=== PATIENT | female | born 1995 | race Caucasian/White ===

== ENCOUNTER 2019-10-15 12:31 | Emergency (ER) | payer MEDICAID ==
[2019-10-15] MEDS ORDERED: Sodium Chloride 0.9% 1000 ML 1,000 ML IV STA (13:28)
[2019-10-15] MEDS ORDERED: Sodium Chloride 0.9% 1000 ML 1,000 ML ONE (13:37)
[2019-10-15 13:42] LABS: Hematocrit 38.8 % (35-47); Hemoglobin 12.3 gm/dl (12.0-16.0); Mean Cell Volume 79.8 fl (78-100); Mean Corpuscular Hemoglobin 25.3 pg (26-32); Mean Corpuscular Hgb Concent. 31.7 g/dl (32-36); Mean Platelet Volume 12.3 fl (6-9.5); Platelet Count 227 K/mm3 (150-450); Red Blood Count 4.86 M/mm3 (4.1-5.4); Red Cell Distribution Width 15.5 % (11.5-14.0); White Blood Count 4.5 K/mm3 (4.0-10.5)
[2019-10-15 14:00] LABS: ALBUMIN 4.7 g/dL (3.5-5.0); ALKALINE PHOSPHATASE 57 U/L (38-126); ANION GAP 10.9 MEQ/L (5-15); BLOOD UREA NITROGEN 8 mg/dL (7-17); CHLORIDE 108 mmol/L (98-107); Calcium 9.8 mg/dL (8.4-10.2); Carbon Dioxide 26 mmol/L (22-30); Creatinine 1 0.57 mg/dL (0.52-1.04); Glucose 89 mg/dL (74-106); Potassium 3.6 mmol/L (3.5-5.1); SGOT/AST 18 U/L (14-36); SGPT/ALT 12 U/L (0-35); SODIUM 141 mmol/L (137-145)
[2019-10-15 15:19] LABS: ABO TYPING O; Antibody Screen NEGATIVE (NEGATIVE); RH TYPING POSITIVE
[2019-10-15] MEDS ORDERED: TYLENOL EXTRA STRENGTH 500 MG PO STA (16:06)
[2019-10-15] MEDS ORDERED: TYLENOL EXTRA STRENGTH 500 MG ONE (16:10)
--- NOTE | 2019-10-15 16:18 | ERPHSYRPT ---
- History of Present Illness Time Seen by Provider: 10/15/19 13:12 Source: patient Exam Limitations: no limitations Patient Subjective Stated Complaint: pt to ER with complaints of vaginal bleeding that started 30 mins ago. pt had some cramping last night and this morning. pt is aprox 6 weeks. Triage Nursing Assessment: pt to ER with complaints of vaginal bleeding since this morning. pt states she is aprox 6 weeks . Physician History: 23 yo at almost 6 weeks gestation based on LMP 09/07/19 with positive home test presented with sudden onset lower abdominal cramps of ,mild to moderate intensity around 1 am , .Almost 30 minutes [employer] started to have vaginal bleed, initially dark and then bright red, moderate amount. no passage of tissue. Timing/Duration: today, intermittent, worse Quality: cramping Onset Location: pelvic pain Severity of Pain-Max: moderate Severity of Pain-Current: mild Modifying Factors: Improves With: nothing Associated Symptoms: denies symptoms Allergies/Adverse Reactions: hydrocodone Allergy (Verified 10/15/19 12:50) Hx Tetanus, Diphtheria Vaccination/Date Given: Yes Hx Influenza Vaccination/Date Given: No Hx Pneumococcal Vaccination/Date Given: No - Review of Systems Constitutional: No Symptoms Eyes: No Symptoms Ears, Nose, & Throat: No Symptoms Respiratory: No Symptoms Cardiac: No Symptoms Abdominal/Gastrointestinal: No Symptoms Genitourinary Symptoms: , Vaginal Bleeding Musculoskeletal: No Symptoms Skin: No Symptoms Neurological: No Symptoms Psychological: No Symptoms - Past Medical History Pertinent Past Medical History: No Neurological History: No Pertinent History ENT History: No Pertinent History Cardiac History: No Pertinent History Respiratory History: No Pertinent History Endocrine Medical History: No Pertinent History Musculoskeletal History: No Pertinent History GI Medical History: No Pertinent History History: No Pertinent History Psycho-Social History: No Pertinent History Female Reproductive Disorders: No Pertinent History - Past Surgical History Past Surgical History: Yes Neuro Surgical History: No Pertinent History Cardiac: No Pertinent History Respiratory: No Pertinent History Gastrointestinal: No Pertinent History Genitourinary: Kidney Surgery Musculoskeletal: No Pertinent History Female Surgical History: No Pertinent History - Social History Smoking Status: Current every day smoker Exposure to second hand smoke: Yes Drug Use: none Patient Lives Alone: No - Female History Hx Last Menstrual Period: 09/07/2019 Hx Now: Yes - Nursing Vital Signs Nursing Vital Signs: Initial Vital Signs Temperature 98.7 F 10/15/19 12:42 Pulse Rate 110 H 10/15/19 12:42 Respiratory Rate 17 10/15/19 12:42 Blood Pressure 120/87 10/15/19 12:42 O2 Sat by Pulse Oximetry 99 10/15/19 12:42 - Physical Exam General Appearance: no apparent distress Eye Exam: PERRL/EOMI, eyes nml inspection Ears, Nose, Throat Exam: normal ENT inspection Neck Exam: normal inspection Respiratory Exam: normal breath sounds Cardiovascular Exam: regular rate/rhythm, normal heart sounds Gastrointestinal/Abdomen Exam: soft, normal bowel sounds, No tenderness Back Exam: normal inspection, normal range of motion Extremity Exam: normal inspection, normal range of motion Neurologic Exam: alert, oriented x 3, cooperative Skin Exam: normal color, warm, dry SpO2 Interpretation: normal SpO2: 98 O2 Delivery: Room Air - Course Nursing assessment & vital signs reviewed: Yes Ordered Tests: Active Orders 24 hr Category Date Time Status OB <14 WKS 1ST GESTATION [US] Stat Exams 10/15/19 15:02 Taken CBC Stat Lab 10/15/19 13:35 Completed CMP Stat Lab 10/15/19 13:35 Completed HCG, Quantitative (Inhouse) Stat Lab 10/15/19 13:35 Completed UA W/RFX UR CULTURE Stat Lab 10/15/19 15:50 Uncollected Medication Summary Discontinued Medications Generic Name Dose Route Start Last Admin Trade Name Nurys PRN Reason Stop Dose Admin Acetaminophen 1,000 mg 10/15/19 16:06 Tylenol Extra Strength 500 Mg PO 10/15/19 16:07 STAT STA Sodium Chloride 1,000 mls @ 999 mls/hr 10/15/19 13:28 10/15/19 15:02 Sodium Chloride 0.9% 1000 Ml IV 10/15/19 14:28 Infused .Q1H1M STA Infusion Sodium Chloride Confirm 10/15/19 13:37 Sodium Chloride 0.9% 1000 Ml Administered 10/15/19 13:38 Dose 1,000 mls @ ud .ROUTE .STK-MED ONE Lab/Rad Data: Laboratory Result Diagrams 10/15/19 13:35 10/15/19 13:35 Laboratory Results 10/15/19 10/15/19 10/15/19 Range/Units 14:00 13:35 13:35 WBC (4.0-10.5) K/mm3 RBC (4.1-5.4) M/mm3 Hgb (12.0-16.0) gm/dl Hct (35-47) % MCV (78-100) fl MCH (26-32) pg MCHC (32-36) g/dl RDW (11.5-14.0) % Plt Count (150-450) K/mm3 MPV (6-9.5) fl Sodium 141 (137-145) mmol/L Potassium 3.6 (3.5-5.1) mmol/L Chloride 108 H (98-107) mmol/L Carbon Dioxide 26 (22-30) mmol/L Anion Gap 10.9 (5-15) MEQ/L BUN 8 (7-17) mg/dL Creatinine 0.57 (0.52-1.04) mg/dL Estimated GFR > 60.0 ML/MIN Glucose 89 (74-106) mg/dL Calcium 9.8 (8.4-10.2) mg/dL Total Bilirubin 0.80 (0.2-1.3) mg/dL AST 18 (14-36) U/L ALT 12 (0-35) U/L Alkaline Phosphatase 57 (38-126) U/L Serum Total Protein 8.0 (6.3-8.2) g/dL Albumin 4.7 (3.5-5.0) g/dL Beta HCG, Quant 413.10 mIU/ml ABO Group O Rh Factor POSITIVE Antibody Screen NEGATIVE (NEGATIVE) 10/15/19 Range/Units 13:35 WBC 4.5 (4.0-10.5) K/mm3 RBC 4.86 (4.1-5.4) M/mm3 Hgb 12.3 (12.0-16.0) gm/dl Hct 38.8 (35-47) % MCV 79.8 (78-100) fl MCH 25.3 L (26-32) pg MCHC 31.7 L (32-36) g/dl RDW 15.5 H (11.5-14.0) % Plt Count 227 (150-450) K/mm3 MPV 12.3 H (6-9.5) fl Sodium (137-145) mmol/L Potassium (3.5-5.1) mmol/L Chloride (98-107) mmol/L Carbon Dioxide (22-30) mmol/L Anion Gap (5-15) MEQ/L BUN (7-17) mg/dL Creatinine (0.52-1.04) mg/dL Estimated GFR ML/MIN Glucose (74-106) mg/dL Calcium (8.4-10.2) mg/dL Total Bilirubin (0.2-1.3) mg/dL AST (14-36) U/L ALT (0-35) U/L Alkaline Phosphatase (38-126) U/L Serum Total Protein (6.3-8.2) g/dL Albumin (3.5-5.0) g/dL Beta HCG, Quant mIU/ml ABO Group Rh Factor Antibody Screen (NEGATIVE) - Progress Progress: unchanged Air Movement: fair Progress Note: 10/15/19 16:16 given IVF , Has no GS / poles, HCG in 400s, its either too early or she is miss carrying, recommended tylenol /increaqsed hydration , pelvic rest and repeat hcg in 2 days . discssed sx/sn of worsening needing return which she seems understanding. - Departure Departure Disposition: Home Clinical Impression: Vaginal bleeding during Condition: Stable Critical Care Time: No Referrals: DOCTOR,NO FAMILY [Primary Care Provider] - Instructions: Threatened Miscarriage (DC) Additional Instructions: USE TYLENOL NEEDED/ INCREASED HYDRATION. FOLLOW UP WITH YOUR OB IN THE MORNING. RECHECK HCG LEVEL IN 2 DAYS . RETURN FOR ANY WORSENING BLEEDING/PAIN / LIGHTHEADEDNESS ETC.
[2019-10-15 16:49] LABS: Appearance SLIGHTLY CLOUDY (CLEAR); Bilirubin NEGATIVE (NEGATIVE); Blood MODERATE Ery/ul (0-5); Epithelial Cells RARE /HPF (FEW); Glucose NEGATIVE (NEGATIVE); Ketones NEGATIVE (NEGATIVE); Leukocyte Esterase NEGATIVE (NEGATIVE); Mucus MANY /HPF (NEGATIVE); Nitrite NEGATIVE (NEGATIVE); Protein,Urine Dip NEGATIVE (Negative); Specific Gravity 1.026 (1.005-1.025); Urobilinogen NEGATIVE mg/dL (0-1); WBC 0-2 /HPF (0-5)
[2019-10-15 16:50] LABS: Bacteria NONE SEEN /HPF (NEGATIVE)
[2019-10-15 16:53] VITALS: BP 113/70; PULSE 68; O2SAT 99
[2019-10-15 17:56] LABS: Slide Review YES
--- NOTE | 2019-10-15 19:05 | XRAY ---
Indication: Bleeding. Two-dimensional transvaginal pelvic sonogram performed. Comparison: None Uterus is anteverted with thickened endometrial stripe up to 12 mm. No endometrial cavity mass, gestational sac, or fluid collection. Left and right ovaries appear unremarkable with normal color perfusion. No suspicious adnexal mass or free fluid. Impression: Thickened endometrial stripe. Remaining transvaginal pelvic sonogram is negative. Comment: Preliminary report was given.
== END 2019-10-15 16:53 | disposition home or self-care (01) ==
LOC: ED 12:31
DX: O20.8 Other hemorrhage in early pregnancy (principal)
CPT/HCPCS: 36000; 36415; 76801; 80053; 81001; 84702; 85027; 86850; 86900; 86901; 96360; 99284; A9270-GY

== ENCOUNTER 2021-10-11 15:15 | Emergency (ER) | payer OTHER ==
--- NOTE | 2021-10-11 15:39 | ERPHSYRPT ---
- History of Present Illness Time Seen by Provider: 10/11/21 15:17 Source: patient Exam Limitations: no limitations Physician History: 25 years old female 5 para 1 at almost 5 weeks gestation per LMP presented in the ER for beta-hCG quant level checked as she had a vaginal bleeding/spotting 2 days ago for which she was evaluated at [facility] on her OB sent here for recheck as she has history of multiple miscarriages early gestation. Patient reports no vaginal bleeding but what 2 days ago. Denies any cramping, urinary complaints. She had ultrasound done at [facility] which they were able to find only a sac but no heartbeat. No abdominal/pelvic pain/cramping. Timing/Duration: abrupt onset, days (2) Severity: mild Associated Symptoms: denies symptoms Allergies/Adverse Reactions: hydrocodone Allergy (Verified 10/15/19 12:50) Hx Tetanus, Diphtheria Vaccination/Date Given: Yes Hx Influenza Vaccination/Date Given: No Hx Pneumococcal Vaccination/Date Given: No - Review of Systems Constitutional: No Symptoms Eyes: No Symptoms Respiratory: No Symptoms Cardiac: No Symptoms Abdominal/Gastrointestinal: No Symptoms Genitourinary Symptoms: Musculoskeletal: No Symptoms Skin: No Symptoms Neurological: No Symptoms Psychological: No Symptoms Endocrine: No Symptoms Hematologic/Lymphatic: No Symptoms Immunological/Allergic: No Symptoms - Past Medical History Pertinent Past Medical History: No Neurological History: No Pertinent History ENT History: No Pertinent History Cardiac History: No Pertinent History Respiratory History: No Pertinent History Endocrine Medical History: No Pertinent History Musculoskeletal History: No Pertinent History GI Medical History: No Pertinent History History: No Pertinent History Psycho-Social History: No Pertinent History Female Reproductive Disorders: No Pertinent History - Past Surgical History Past Surgical History: Yes Neuro Surgical History: No Pertinent History Cardiac: No Pertinent History Respiratory: No Pertinent History Gastrointestinal: No Pertinent History Genitourinary: Kidney Surgery Musculoskeletal: No Pertinent History Female Surgical History: No Pertinent History - Social History Smoking Status: Current every day smoker Exposure to second hand smoke: Yes Drug Use: none Patient Lives Alone: No - Nursing Vital Signs Nursing Vital Signs: Initial Vital Signs Temperature 98.5 F 10/11/21 15:40 Pulse Rate 64 10/11/21 15:40 Respiratory Rate 18 10/11/21 15:40 Blood Pressure 122/75 10/11/21 15:40 O2 Sat by Pulse Oximetry 95 10/11/21 15:40 Pain Scale Pain Intensity 0 - Physical Exam General Appearance: no apparent distress, alert, anxiety Eye Exam: bilateral eye: normal inspection, PERRL Ear Exam: bilateral ear: auricle normal Nasal Exam: normal inspection Throat Exam: normal, pharynx normal Neck Exam: normal inspection, supple, full range of motion Cardiovascular/Respiratory Exam: normal breath sounds, regular rate/rhythm Abdominal Exam: non-tender, soft, no organomegaly, No guarding Neurologic Exam: alert, oriented x 3, cooperative Skin Exam: normal color SpO2 Interpretation: normal SpO2: 95 O2 Delivery: Room Air Ordered Tests: Active Orders 24 hr Category Date Time Status HCG, Quantitative (Inhouse) Stat Lab 10/11/21 16:51 Completed HCG,QUALITATIVE URINE Stat Lab 10/11/21 16:24 Completed UA W/RFX UR CULTURE Stat Lab 10/11/21 15:54 Completed Lab/Rad Data: Laboratory Results 10/11/21 10/11/21 10/11/21 Range/Units 16:51 16:45 16:24 Beta HCG, Quant 7864.0 mIU/ml Urine Color (YELLOW) Urine Appearance (CLEAR) Urine pH (5-6) Ur Specific [place] (1.005-1.025) Urine Protein (Negative) Urine Ketones (NEGATIVE) Urine Blood (0-5) Cesar/ul Urine Nitrite (NEGATIVE) Urine Bilirubin (NEGATIVE) Urine Urobilinogen (0-1) mg/dL Ur Leukocyte Esterase (NEGATIVE) Urine WBC (Auto) (0-5) /HPF Urine RBC (Auto) (0-2) /HPF U Epithel Cells (Auto) (FEW) /HPF Urine Bacteria (Auto) (NEGATIVE) /HPF Urine Mucus (Auto) (NEGATIVE) /HPF Urine Culture Reflexed (NO) Urine Glucose (NEGATIVE) mg/dL Urine HCG, Qual POSITIVE (Negative) ABO Group O Rh Factor POSITIVE Antibody Screen NEGATIVE (NEGATIVE) 10/11/21 Range/Units 15:54 Beta HCG, Quant mIU/ml Urine Color YELLOW (YELLOW) Urine Appearance SLIGHTLY CLOUDY (CLEAR) Urine pH 6.0 (5-6) Ur Specific [place] 1.021 (1.005-1.025) Urine Protein NEGATIVE (Negative) Urine Ketones NEGATIVE (NEGATIVE) Urine Blood NEGATIVE (0-5) Cesar/ul Urine Nitrite NEGATIVE (NEGATIVE) Urine Bilirubin NEGATIVE (NEGATIVE) Urine Urobilinogen NEGATIVE (0-1) mg/dL Ur Leukocyte Esterase TRACE (NEGATIVE) Urine WBC (Auto) 3-5 (0-5) /HPF Urine RBC (Auto) NONE (0-2) /HPF U Epithel Cells (Auto) RARE (FEW) /HPF Urine Bacteria (Auto) NONE (NEGATIVE) /HPF Urine Mucus (Auto) SLIGHT (NEGATIVE) /HPF Urine Culture Reflexed NO (NO) Urine Glucose NEGATIVE (NEGATIVE) mg/dL Urine HCG, Qual (Negative) ABO Group Rh Factor Antibody Screen (NEGATIVE) - Progress Progress: unchanged Progress Note: 10/11/21 16:34 25 years old is evaluated for vaginal bleeding few days ago and needs beta-hCG quant level checked. She does not have any more bleeding. Denies any urinary symptoms. She has a blood group O+. Patient does not want to stay for the results, wants to be called as she has to cook pickled meat her son. She is being discharged and will call with results. Patient is called about the results of increasing hCG which is reassuring and recommended outpatient OB follow-up. Counseled pt/family regarding: lab results, diagnosis, need for follow-up - Departure Departure Disposition: Home Clinical Impression: Vaginal bleeding affecting early Condition: Stable Critical Care Time: No Referrals: DOCTOR,NO FAMILY [NON-STAFF PHY W/O PRIVILEGES] - Follow up/PCP as directed KANDI BALDWIN DO [ACTIVE STAFF] - Follow up/PCP as directed (Call in 2 days for reevaluation) Instructions: Threatened Miscarriage (DC), Bleeding With (DC) Additional Instructions: Drink plenty of fluids. Take Tylenol as needed. Pelvic rest. Follow-up with OB for reevaluation. Return to ER for cramping, vaginal bleeding discharge etc.
[2021-10-11 16:42] VITALS: BP 110/61; PULSE 68
[2021-10-11 16:49] VITALS: O2SAT 95
[2021-10-11 17:34] LABS: Appearance SLIGHTLY CLOUDY (CLEAR); Bilirubin NEGATIVE (NEGATIVE); Blood NEGATIVE Ery/ul (0-5); Epithelial Cells RARE /HPF (FEW); Glucose NEGATIVE (NEGATIVE); Ketones NEGATIVE (NEGATIVE); Leukocyte Esterase TRACE (NEGATIVE); Mucus SLIGHT /HPF (NEGATIVE); Nitrite NEGATIVE (NEGATIVE); Protein,Urine Dip NEGATIVE (Negative); Specific Gravity 1.021 (1.005-1.025); Urobilinogen NEGATIVE mg/dL (0-1)
[2021-10-11 17:50] LABS: ABO TYPING O; Antibody Screen NEGATIVE (NEGATIVE); RH TYPING POSITIVE
== END 2021-10-11 16:55 | disposition home or self-care (01) ==
LOC: ED 15:15
DX: O26.851 Spotting complicating pregnancy, first trimester (principal); Z3A.01 Less than 8 weeks gestation of pregnancy; Z72.0 Tobacco use
CPT/HCPCS: 36415; 81001; 84702; 84703; 86850; 86900; 86901; 99283

== ENCOUNTER 2021-10-27 18:09 | Emergency (ER) | payer OTHER ==
[2021-10-27 18:54] VITALS: O2SAT 100
--- NOTE | 2021-10-27 19:09 | ERPHSYRPT ---
- History of Present Illness Time Seen by Provider: 10/27/21 19:06 Source: patient Exam Limitations: no limitations Patient Subjective Stated Complaint: " I am 8 weeks and I had a gush of blood around 6pm and my pants were wet". Triage Nursing Assessment: Pt presents to ER with complaints of vaginal bleeding that occurred this afternoon around 1800, states has been spotting all but had increase in bleeding today. Pt is alert and oriented x3. Skin is pink, warm, and dry. Respirations are unlabored at this time. Pt complains of lower abdominal cramping, rates pain 6/10 scale. Pt is a A4, pt states goes to OBGYN Dr. Mcgowan. Pt is experiencing an increase in vaginal discharge. Allergies/Adverse Reactions: hydrocodone Allergy (Verified 10/27/21 18:54) Hx Tetanus, Diphtheria Vaccination/Date Given: Yes Hx Influenza Vaccination/Date Given: No Hx Pneumococcal Vaccination/Date Given: No Immunizations Up to Date: Yes Travel Risk - International Travel Have you traveled outside of the country in past 3 weeks: No - Coronavirus Screening Are you exhibiting any of the following symptoms?: Yes Symptoms: Fever, Cough: New Onset, Headaches/Body Aches/Fatigue Close contact with a COVID-19 positive Pt in past 14-21 Days: Yes - Vaccine Status Have you recieved a Covid-19 vaccination: No - Past Medical History Pertinent Past Medical History: Yes Neurological History: No Pertinent History ENT History: No Pertinent History Cardiac History: No Pertinent History Respiratory History: No Pertinent History Endocrine Medical History: No Pertinent History Musculoskeletal History: No Pertinent History GI Medical History: No Pertinent History History: No Pertinent History Psycho-Social History: Anxiety, Attention Deficit Disorder, Depression Female Reproductive Disorders: No Pertinent History Other Medical History: Miscarried 2 children - Past Surgical History Past Surgical History: Yes Neuro Surgical History: No Pertinent History Cardiac: No Pertinent History Respiratory: No Pertinent History Gastrointestinal: No Pertinent History Genitourinary: Kidney Surgery Musculoskeletal: No Pertinent History Female Surgical History: No Pertinent History Other Surgical History: wisdom teeth - Social History Smoking Status: Current every day smoker Exposure to second hand smoke: No Drug Use: none Patient Lives Alone: No - Female History Hx Last Menstrual Period: 08/30/2021 Hx Now: Yes Expected Date of Delivery: 06/10/22 Gestational Age: 8 weeks - Nursing Vital Signs Nursing Vital Signs: Initial Vital Signs Temperature 96.8 F 10/27/21 18:47 Pulse Rate 62 10/27/21 18:47 Respiratory Rate 18 10/27/21 18:47 Blood Pressure 127/82 10/27/21 18:47 O2 Sat by Pulse Oximetry 100 10/27/21 18:47 Pain Scale Pain Intensity 6 - Physical Exam SpO2: 100 - Departure Referrals: DANGELO WARREN CERTIFIED PHYSICIAN'S ASSISTANT [Primary Care Provider] - Follow up/PCP as directed
--- NOTE | 2021-10-27 19:09 | ERPHSYRPT ---
- History of Present Illness Time Seen by Provider: 10/27/21 19:06 Patient Subjective Stated Complaint: " I am 8 weeks and I had a gush of blood around 6pm and my pants were wet". Triage Nursing Assessment: Pt presents to ER with complaints of vaginal bleeding that occurred this afternoon around 1800, states has been spotting all but had increase in bleeding today. Pt is alert and oriented x3. Skin is pink, warm, and dry. Respirations are unlabored at this time. Pt complains of lower abdominal cramping, rates pain 6/10 scale. Pt is a A4, pt states goes to OBGYN Dr. Mcgowan. Pt is experiencing an increase in vaginal discharge. Physician History: This is a 25-year-old white female patient of Dr. Mcgowan, obstetrics and gynecology who is 8 weeks . She underwent first trimester OB ultrasound last week and there was a single intrauterine fetus present. Patient states that per her work-up from her shampoo technician, everything looked good despite having vaginal spotting throughout this thus far. Patient is a A4 female. Today, approximately 1 hour prior to her arrival to the emergency department, she had a gush of fluid that ended up being blood and associated suprapubic and pelvic cramping. Patient arrives to the emergency department and her vital signs are stable. Timing/Duration: today Activites at Onset: none Quality: cramping Pain Radiation: suprapubic Severity of Pain-Max: mild Severity of Pain-Current: mild Sexual intercourse history: non-contributory Modifying Factors: Improves With: nothing Associated Symptoms: vaginal discharge (Blood) Allergies/Adverse Reactions: hydrocodone Allergy (Verified 10/27/21 18:54) Hx Tetanus, Diphtheria Vaccination/Date Given: Yes Hx Influenza Vaccination/Date Given: No Hx Pneumococcal Vaccination/Date Given: No Travel Risk - International Travel Have you traveled outside of the country in past 3 weeks: No - Coronavirus Screening Are you exhibiting any of the following symptoms?: Yes Symptoms: Fever, Cough: New Onset, Headaches/Body Aches/Fatigue Close contact with a COVID-19 positive Pt in past 14-21 Days: Yes - Vaccine Status Have you recieved a Covid-19 vaccination: No - Review of Systems Constitutional: No Symptoms Eyes: No Symptoms Ears, Nose, & Throat: No Symptoms Respiratory: No Symptoms Cardiac: No Symptoms Abdominal/Gastrointestinal: Abdominal Pain (Suprapubic cramping) Genitourinary Symptoms: Vaginal Bleeding Musculoskeletal: No Symptoms Skin: No Symptoms Neurological: No Symptoms Psychological: No Symptoms Endocrine: No Symptoms Hematologic/Lymphatic: No Symptoms Immunological/Allergic: No Symptoms All Other Systems: Reviewed and Negative - Past Medical History Pertinent Past Medical History: Yes Neurological History: No Pertinent History ENT History: No Pertinent History Cardiac History: No Pertinent History Respiratory History: No Pertinent History Endocrine Medical History: No Pertinent History Musculoskeletal History: No Pertinent History GI Medical History: No Pertinent History History: No Pertinent History Psycho-Social History: Anxiety, Attention Deficit Disorder, Depression Female Reproductive Disorders: No Pertinent History Other Medical History: Miscarried 2 children - Past Surgical History Past Surgical History: Yes Neuro Surgical History: No Pertinent History Cardiac: No Pertinent History Respiratory: No Pertinent History Gastrointestinal: No Pertinent History Genitourinary: Kidney Surgery Musculoskeletal: No Pertinent History Female Surgical History: No Pertinent History Other Surgical History: wisdom teeth - Social History Smoking Status: Current every day smoker Exposure to second hand smoke: No Drug Use: none Patient Lives Alone: No - Female History Hx Last Menstrual Period: 08/30/2021 Hx Now: Yes Expected Date of Delivery: 06/10/22 Gestational Age: 8 weeks - Nursing Vital Signs Nursing Vital Signs: Initial Vital Signs Temperature 96.8 F 10/27/21 18:47 Pulse Rate 62 10/27/21 18:47 Respiratory Rate 18 10/27/21 18:47 Blood Pressure 127/82 10/27/21 18:47 O2 Sat by Pulse Oximetry 100 10/27/21 18:47 Pain Scale Pain Intensity 6 - Physical Exam General Appearance: no apparent distress, alert, anxiety Eye Exam: PERRL/EOMI, eyes nml inspection Ears, Nose, Throat Exam: normal ENT inspection, moist mucous membranes Neck Exam: normal inspection, non-tender, supple, full range of motion Respiratory Exam: normal breath sounds, lungs clear, airway intact, No chest tenderness, No respiratory distress Cardiovascular Exam: regular rate/rhythm, normal heart sounds, normal peripheral pulses Gastrointestinal/Abdomen Exam: soft, normal bowel sounds, tenderness, No guarding (Mild suprapubic to palpation), No rebound Pelvic Exam: not done Rectal Exam: not done Back Exam: normal inspection, normal range of motion, No CVA tenderness, No vertebral tenderness Extremity Exam: normal inspection, normal range of motion, pelvis stable Neurologic Exam: alert, oriented x 3, cooperative, traffic expert II-XII nml as tested, normal mood/affect, nml cerebellar function, nml station & gait, sensation nml Skin Exam: normal color, warm, dry Lymphatic Exam: No adenopathy SpO2 Interpretation: normal SpO2: 100 O2 Delivery: Room Air - Course Nursing assessment & vital signs reviewed: Yes Ordered Tests: Active Orders 24 hr Category Date Time Status IV Insertion STAT Care 10/27/21 19:09 Active CBC W DIFF Stat Lab 10/27/21 19:20 Completed CMP Stat Lab 10/27/21 19:20 Completed CULTURE,URINE Stat Lab 10/27/21 19:24 Received HCG, Quantitative (Inhouse) Stat Lab 10/27/21 19:20 Completed HCG,QUALITATIVE URINE Stat Lab 10/27/21 19:24 Completed UA W/RFX UR CULTURE Stat Lab 10/27/21 19:24 Completed Lab/Rad Data: Laboratory Result Diagrams 10/27/21 19:20 10/27/21 19:20 Laboratory Results 10/27/21 10/27/21 10/27/21 Range/Units 19:24 19:24 19:20 WBC (4.0-10.5) K/mm3 RBC (4.1-5.4) M/mm3 Hgb (12.0-16.0) gm/dl Hct (35-47) % MCV (78-100) fl MCH (26-32) pg MCHC (32-36) g/dl RDW (11.5-14.0) % Plt Count (150-450) K/mm3 MPV (7.5-11.0) fl Gran % (36.0-66.0) % Eos # (Auto) (0-0.5) Absolute Lymphs (auto) (1.0-4.6) Absolute Monos (auto) (0.0-1.3) Lymphocytes % (24.0-44.0) % Monocytes % (0.0-12.0) % Eosinophils % (0.00-5.0) % Basophils % (0.0-0.4) % Absolute Granulocytes (1.4-6.9) Basophils # (0-0.4) Sodium (137-145) mmol/L Potassium (3.5-5.1) mmol/L Chloride (98-107) mmol/L Carbon Dioxide (22-30) mmol/L Anion Gap (5-15) MEQ/L BUN (7-17) mg/dL Creatinine (0.52-1.04) mg/dL Estimated GFR ML/MIN Glucose (74-106) mg/dL Calcium (8.4-10.2) mg/dL Total Bilirubin (0.2-1.3) mg/dL AST (14-36) U/L ALT (0-35) U/L Alkaline Phosphatase (38-126) U/L Serum Total Protein (6.3-8.2) g/dL Albumin (3.5-5.0) g/dL Beta HCG, Quant 91408 mIU/ml Urine Color YELLOW (YELLOW) Urine Appearance CLOUDY (CLEAR) Urine pH 5.0 (5-6) Ur Specific [place] 1.025 (1.005-1.025) Urine Protein 30 (Negative) Urine Ketones SMALL (NEGATIVE) Urine Blood NEGATIVE (0-5) Cesar/ul Urine Nitrite NEGATIVE (NEGATIVE) Urine Bilirubin NEGATIVE (NEGATIVE) Urine Urobilinogen NEGATIVE (0-1) mg/dL Ur Leukocyte Esterase SMALL (NEGATIVE) Urine WBC (Auto) 6-10 (0-5) /HPF Urine RBC (Auto) 6-10 (0-2) /HPF U Epithel Cells (Auto) MODERATE (FEW) /HPF Urine Bacteria (Auto) RARE (NEGATIVE) /HPF Urine Mucus (Auto) SLIGHT (NEGATIVE) /HPF Urine Culture Reflexed YES (NO) Urine Glucose NEGATIVE (NEGATIVE) mg/dL Urine HCG, Qual POSITIVE (Negative) 10/27/21 10/27/21 Range/Units 19:20 19:20 WBC 4.6 (4.0-10.5) K/mm3 RBC 4.60 (4.1-5.4) M/mm3 Hgb 12.4 (12.0-16.0) gm/dl Hct 38.2 (35-47) % MCV 83.0 (78-100) fl MCH 27.0 (26-32) pg MCHC 32.5 (32-36) g/dl RDW 15.4 H (11.5-14.0) % Plt Count 154 (150-450) K/mm3 MPV 12.0 H (7.5-11.0) fl Gran % 67.9 H (36.0-66.0) % Eos # (Auto) 0.02 (0-0.5) Absolute Lymphs (auto) 1.02 (1.0-4.6) Absolute Monos (auto) 0.42 (0.0-1.3) Lymphocytes % 22.3 L (24.0-44.0) % Monocytes % 9.2 (0.0-12.0) % Eosinophils % 0.4 (0.00-5.0) % Basophils % 0.2 (0.0-0.4) % Absolute Granulocytes 3.11 (1.4-6.9) Basophils # 0.01 (0-0.4) Sodium 134 L (137-145) mmol/L Potassium 3.7 (3.5-5.1) mmol/L Chloride 101 (98-107) mmol/L Carbon Dioxide 25 (22-30) mmol/L Anion Gap 11.8 (5-15) MEQ/L BUN 5 L (7-17) mg/dL Creatinine 0.50 L (0.52-1.04) mg/dL Estimated GFR > 60.0 ML/MIN Glucose 93 (74-106) mg/dL Calcium 8.6 (8.4-10.2) mg/dL Total Bilirubin 0.40 (0.2-1.3) mg/dL AST 17 (14-36) U/L ALT 11 (0-35) U/L Alkaline Phosphatase 53 (38-126) U/L Serum Total Protein 7.1 (6.3-8.2) g/dL Albumin 4.4 (3.5-5.0) g/dL Beta HCG, Quant mIU/ml Urine Color (YELLOW) Urine Appearance (CLEAR) Urine pH (5-6) Ur Specific Santa (1.005-1.025) Urine Protein (Negative) Urine Ketones (NEGATIVE) Urine Blood (0-5) Cesar/ul Urine Nitrite (NEGATIVE) Urine Bilirubin (NEGATIVE) Urine Urobilinogen (0-1) mg/dL Ur Leukocyte Esterase (NEGATIVE) Urine WBC (Auto) (0-5) /HPF Urine RBC (Auto) (0-2) /HPF U Epithel Cells (Auto) (FEW) /HPF Urine Bacteria (Auto) (NEGATIVE) /HPF Urine Mucus (Auto) (NEGATIVE) /HPF Urine Culture Reflexed (NO) Urine Glucose (NEGATIVE) mg/dL Urine HCG, Qual (Negative) - Progress Progress: improved, re-examined Air Movement: good Progress Note: 10/27/21 20:09 Medical decision making: I did call the patient's shampoo technician, Dr. Mcgowan who stated that the patient, if stable, can be sent home and if possible, order an outpatient OB ultrasound. He will be back in the office on 10/29/2021. We are awaiting the remainder of her work-up and we will follow this plan. Blood Culture(s) Obtained: No Counseled pt/family regarding: lab results, diagnosis, need for follow-up - Departure Departure Disposition: Home Clinical Impression: Vaginal bleeding during , UTI (urinary tract infection) during Condition: Stable Critical Care Time: No Referrals: DANGELO WARREN TIRE WORKER [Primary Care Provider] - Follow up/PCP as directed Additional Instructions: Drink plenty fluids. Follow-up at the radiology department tomorrow morning for OB less than 14 weeks ultrasound. Take your antibiotics as prescribed. Call your shampoo technician tomorrow to make arrange for follow-up appointment. Prescriptions: Cephalexin Mh 500 mg [Keflex 500 mg] 500 mg PO TID #15 cap
[2021-10-27 19:30] LABS: Absolute Neutrophil Ct (ANC) 3.11 (1.4-6.9); Basophil (Absolute #) 0.01 (0-0.4); Eosinophil % 0.4 % (0.00-5.0); Eosinophil (Absolute #) 0.02 (0-0.5); Hematocrit 38.2 % (35-47); Hemoglobin 12.4 gm/dl (12.0-16.0); Lymphocyte (Absolute #) 1.02 (1.0-4.6); Lymphocytes % 22.3 % (24.0-44.0); Mean Corpuscular Hgb Concent. 32.5 g/dl (32-36); Monocyte (Absolute #) 0.42 (0.0-1.3); Monocytes % 9.2 % (0.0-12.0); Neutrophil % 67.9 % (36.0-66.0); Platelet Count 154 K/mm3 (150-450); Red Cell Distribution Width 15.4 % (11.5-14.0); White Blood Count 4.6 K/mm3 (4.0-10.5)
[2021-10-27 19:42] LABS: ALBUMIN 4.4 g/dL (3.5-5.0); ALKALINE PHOSPHATASE 53 U/L (38-126); ANION GAP 11.8 MEQ/L (5-15); BLOOD UREA NITROGEN 5 mg/dL (7-17); CHLORIDE 101 mmol/L (98-107); Calcium 8.6 mg/dL (8.4-10.2); Carbon Dioxide 25 mmol/L (22-30); EST GLOMERULAR FILTRATION RATE > 60.0 ML/MIN; Glucose 93 mg/dL (74-106); Potassium 3.7 mmol/L (3.5-5.1); SGOT/AST 17 U/L (14-36); SGPT/ALT 11 U/L (0-35); SODIUM 134 mmol/L (137-145); Total Protein 7.1 g/dL (6.3-8.2)
[2021-10-27 21:00] LABS: Appearance CLOUDY (CLEAR); Bacteria RARE /HPF (NEGATIVE); Bilirubin NEGATIVE (NEGATIVE); Blood NEGATIVE Ery/ul (0-5); Epithelial Cells MODERATE /HPF (FEW); Glucose NEGATIVE (NEGATIVE); Ketones SMALL (NEGATIVE); Leukocyte Esterase SMALL (NEGATIVE); Mucus SLIGHT /HPF (NEGATIVE); Nitrite NEGATIVE (NEGATIVE); Protein,Urine Dip 30 (Negative); Specific Gravity 1.025 (1.005-1.025); Urobilinogen NEGATIVE mg/dL (0-1)
[2021-10-27] MEDS ORDERED: KEFLEX 500 MG PO ONE (21:06)
[2021-10-27] MEDS ORDERED: KEFLEX 500 MG ONE (21:10)
[2021-10-27 21:27] VITALS: BP 111/69; PULSE 76
== END 2021-10-27 21:20 | disposition home or self-care (01) ==
LOC: ED 18:09
DX: O20.9 Hemorrhage in early pregnancy, unspecified (principal); O23.41 Unspecified infection of urinary tract in pregnancy, first trimester; N39.0 Urinary tract infection, site not specified; Z3A.08 8 weeks gestation of pregnancy; Z72.0 Tobacco use
CPT/HCPCS: 36415; 80053; 81001; 84702; 84703; 85025; 87086; 99283; A9270-GY

== ENCOUNTER 2021-10-30 06:39 | Emergency (ER) | payer OTHER ==
[2021-10-30 07:00] VITALS: BP 130/83; PULSE 95; O2SAT 100
[2021-10-30] MEDS ORDERED: Augmentin 875-125 Tablet PO ONE (07:21)
[2021-10-30] MEDS ORDERED: Augmentin 875-125 Tablet ONE (07:26)
[2021-10-30] MEDS ORDERED: MORPHINE SULFATE 4 MG INJ ONE (07:30)
[2021-10-30] MEDS ORDERED: MORPHINE SULFATE 4 MG INJ IM ONE (07:42)
[2021-10-30] MEDS ORDERED: ZOFRAN ODT 4 MG PO ONE (08:04)
[2021-10-30] MEDS ORDERED: ZOFRAN ODT 4 MG ONE (08:04)
--- NOTE | 2021-10-30 08:13 | ERPHSYRPT ---
- History of Present Illness Time Seen by Provider: 10/30/21 07:42 Source: patient Exam Limitations: no limitations Patient Subjective Stated Complaint: pt states she has a chipped tooth and swelling to her lt lower jaw and has been having increased pain today Triage Nursing Assessment: pt alert and oriented, answers questions approp. pt ambulatory with steady gait noted. pt tearful and restless in bed. respirations nonlabored. Physician History: 25 years old 8 weeks gestation presented in the ER with chief complaint of left lower jaw/tooth ache problems 1 week with gradual worsening moderate to severe sharp throbbing, increased sensitivity to hot and cold touch and no significant relief with taking [id number] pain relief meds like Tylenol. Reports associated swelling of gums. Patient reports she has a broken chip tooth and is scheduled to be seen by dentist in a week and a half. No fever or chills reported. Patient also reports she did takes [place] from her friend yesterday which did mild relief. Timing/Duration: gradual onset, weeks (1) Severity: moderate, severe ENT Location: dental Prearrival Treatment: over the counter meds Associated Symptoms: facial pain/swelling, tooth pain Allergies/Adverse Reactions: hydrocodone Allergy (Verified 10/30/21 07:00) Hx Tetanus, Diphtheria Vaccination/Date Given: Yes Hx Influenza Vaccination/Date Given: No Hx Pneumococcal Vaccination/Date Given: No Immunizations Up to Date: Yes Travel Risk - International Travel Have you traveled outside of the country in past 3 weeks: No - Coronavirus Screening Are you exhibiting any of the following symptoms?: Yes Symptoms: Cough: New Onset, Headaches/Body Aches/Fatigue - Vaccine Status Have you recieved a Covid-19 vaccination: No - Review of Systems Constitutional: No Symptoms Eyes: No Symptoms Ears, Nose, & Throat: Mouth Pain Respiratory: No Symptoms Cardiac: No Symptoms Abdominal/Gastrointestinal: No Symptoms Genitourinary Symptoms: No Symptoms Musculoskeletal: No Symptoms Neurological: No Symptoms Endocrine: No Symptoms Hematologic/Lymphatic: No Symptoms - Past Medical History Pertinent Past Medical History: Yes Neurological History: No Pertinent History ENT History: No Pertinent History Cardiac History: No Pertinent History Respiratory History: No Pertinent History Endocrine Medical History: No Pertinent History Musculoskeletal History: No Pertinent History GI Medical History: No Pertinent History History: No Pertinent History Psycho-Social History: Anxiety, Attention Deficit Disorder, Depression Female Reproductive Disorders: No Pertinent History Other Medical History: Miscarried 2 children - Past Surgical History Past Surgical History: Yes Neuro Surgical History: No Pertinent History Cardiac: No Pertinent History Respiratory: No Pertinent History Gastrointestinal: No Pertinent History Genitourinary: No Pertinent History Musculoskeletal: No Pertinent History Female Surgical History: No Pertinent History Other Surgical History: wisdom teeth - Social History Smoking Status: Current every day smoker How long have you smoked: yrs Exposure to second hand smoke: No Drug Use: none Patient Lives Alone: No - Female History Hx Last Menstrual Period: sep 03, 2021 Hx Now: Yes Expected Date of Delivery: 06/10/22 Gestational Age: 8weeks - Nursing Vital Signs Nursing Vital Signs: Initial Vital Signs Temperature 98.3 F 10/30/21 06:46 Pulse Rate 95 H 10/30/21 06:46 Respiratory Rate 18 10/30/21 06:46 Blood Pressure 130/83 10/30/21 06:46 O2 Sat by Pulse Oximetry 100 10/30/21 06:46 Pain Scale Pain Intensity 10 - Physical Exam General Appearance: no apparent distress, alert Eye Exam: bilateral eye: normal inspection, PERRL, EOMI Ear Exam: bilateral ear: auricle normal, canal normal, TM normal Nasal Exam: normal inspection Throat Exam: normal, pharynx normal, dental tenderness (Left lower premolar and molar with gingival swelling and tenderness without fluctuation) Neck Exam: normal inspection, non-tender, supple, full range of motion Cardiovascular/Respiratory Exam: normal breath sounds, regular rate/rhythm Neurologic Exam: alert, oriented x 3, cooperative, package center supervisor II-XII nml as tested Skin Exam: normal color SpO2 Interpretation: normal SpO2: 100 O2 Delivery: Room Air Ordered Tests: Medication Summary Discontinued Medications Generic Name Dose Route Start Last Admin Trade Name Freq PRN Reason Stop Dose Admin Amoxicillin/Clavulanate Potassium 875 mg 10/30/21 07:21 10/30/21 07:27 Amox Tr/Potassium Clavulanate 875 Mg Tablet PO 10/30/21 07:22 875 mg STAT ONE Administration Amoxicillin/Clavulanate Potassium Confirm 10/30/21 07:26 Amox Tr/Potassium Clavulanate 875 Mg Tablet Administered 10/30/21 07:27 Dose 875 mg .ROUTE .STK-MED ONE Morphine Sulfate Confirm 10/30/21 07:30 Morphine Sulfate 4 Mg/Ml Injection Administered 10/30/21 07:31 Dose 4 mg .ROUTE .STK-MED ONE Morphine Sulfate 4 mg 10/30/21 07:42 10/30/21 07:56 Morphine Sulfate 4 Mg/Ml Injection IM 10/30/21 07:43 4 mg STAT ONE Administration Ondansetron HCl 4 mg 10/30/21 08:04 10/30/21 08:04 Zofran 4 Mg/Udtablet Orally Disintegrating PO 10/30/21 08:05 4 mg STAT ONE Administration Ondansetron HCl Confirm 10/30/21 08:04 Zofran 4 Mg/Udtablet Orally Disintegrating Administered 10/30/21 08:05 Dose 4 mg .ROUTE .STK-MED ONE - Progress Progress: pain not gone completely Progress Note: 10/30/21 08:09 She is given symptomatic relief with pain medication after going over risk and benefits of category C medications and she agreed with receiving morphine. Started on Augmentin. We will give her tramadol to go home and she understands the risk that this medication is category C and not completely safe but still wants it. Outpatient dental follow-up. Counseled pt/family regarding: diagnosis, need for follow-up - Departure Departure Disposition: Home Clinical Impression: Dental infection Condition: Stable Critical Care Time: No Referrals: DANGELO WARREN SPEECH THERAPIST [facility] [Primary Care Provider] - Follow up/PCP as directed Instructions: Tooth Abscess (DC), Dental Pain (DC) Additional Instructions: Follow-up with your dentist in 1-2 days for reevaluation. Take pain medications as needed. Continue with Augmentin and stop taking Keflex. Return to ER for increasing swelling, pain/fever chills etc. Prescriptions: Tramadol HCl 50 mg [Ultram 50 mg] 50 mg PO Q6HPRN PRN 3 Days #12 tablet PRN Reason: Pain Amox Tr/Potass Clav. 875 mg [Augmentin 875-125 Tablet] 875 mg PO BID #14 tablet
== END 2021-10-30 08:20 | disposition home or self-care (01) ==
LOC: ED 06:39
DX: K04.7 Periapical abscess without sinus (principal); Z72.0 Tobacco use; Z33.1 Pregnant state, incidental; Z79.891 Long term (current) use of opiate analgesic
CPT/HCPCS: 96372; 99283; J2270; Q0162; A9270-GY

== ENCOUNTER 2021-12-09 23:50 | Emergency (ER) | payer OTHER ==
[2021-12-10 00:41] LABS: Absolute Neutrophil Ct (ANC) 4.07 (1.4-6.9); Basophil (Absolute #) 0.03 (0-0.4); Eosinophil % 1.4 % (0.00-5.0); Eosinophil (Absolute #) 0.09 (0-0.5); Hematocrit 34.8 % (35-47); Hemoglobin 11.1 gm/dl (12.0-16.0); Lymphocyte (Absolute #) 1.87 (1.0-4.6); Lymphocytes % 28.8 % (24.0-44.0); Mean Cell Volume 86.4 fl (78-100); Mean Corpuscular Hemoglobin 27.5 pg (26-32); Mean Corpuscular Hgb Concent. 31.9 g/dl (32-36); Mean Platelet Volume 11.5 fl (7.5-11.0); Monocyte (Absolute #) 0.44 (0.0-1.3); Monocytes % 6.8 % (0.0-12.0); Neutrophil % 62.5 % (36.0-66.0); Platelet Count 187 K/mm3 (150-450); Red Blood Count 4.03 M/mm3 (4.1-5.4); Red Cell Distribution Width 16.5 % (11.5-14.0); White Blood Count 6.5 K/mm3 (4.0-10.5)
[2021-12-10 00:49] LABS: Appearance CLOUDY (CLEAR); Bilirubin NEGATIVE (NEGATIVE); Blood LARGE Ery/ul (0-5); Epithelial Cells MODERATE /HPF (FEW); Glucose NEGATIVE (NEGATIVE); Ketones NEGATIVE (NEGATIVE); Leukocyte Esterase TRACE (NEGATIVE); Mucus SLIGHT /HPF (NEGATIVE); Nitrite NEGATIVE (NEGATIVE); Protein,Urine Dip 30 (Negative); RBC 0-2 /HPF (0-2); Specific Gravity 1.017 (1.005-1.025); Urobilinogen NEGATIVE mg/dL (0-1)
[2021-12-10 01:08] LABS: Bacteria Many; Clue Cells Few; Red Blood Cells None Seen; Trichomonas None Seen; White Blood Cells Many; Yeast None Seen
--- NOTE | 2021-12-10 01:16 | ERPHSYRPT ---
- History of Present Illness Time Seen by Provider: 12/09/21 23:55 Source: patient Exam Limitations: no limitations Patient Subjective Stated Complaint: "I'm having some vaginal bleeding." Triage Nursing Assessment: 25 y/o white female T1 A4 L1 who is 14 weeks gestation reported having vaginal bleedin onset 12/08/21 after having intercourse last night. She reported having no bleeding or intercourse on 12/09/21 and awoke around midnight and had a large amount of vaginal bleeding without cramping. Denied any clots. Denied abdominal/pelvic pain, N/V, chest pain or shortness of breath. Symmetrical chest expansion. heart tones RRR. Lungs vesicular without adventitious sounds. Abdomen obese non-distended, non-tender, without voluntary/involuntary guarding. peripheral pulses +3 bilateral. No dependent edema. Timing/Duration: today Severity: moderate Modifying Factors: Improves With: nothing Associated Symptoms: denies symptoms Allergies/Adverse Reactions: hydrocodone Allergy (Verified 12/09/21 23:56) Hx Tetanus, Diphtheria Vaccination/Date Given: Yes Hx Influenza Vaccination/Date Given: No Hx Pneumococcal Vaccination/Date Given: No Travel Risk - International Travel Have you traveled outside of the country in past 3 weeks: No - Coronavirus Screening Are you exhibiting any of the following symptoms?: No Close contact with a COVID-19 positive Pt in past 14-21 Days: No - Vaccine Status Have you recieved a Covid-19 vaccination: No - Review of Systems Constitutional: No Symptoms, No Fever, No Chills Eyes: No Symptoms Ears, Nose, & Throat: No Symptoms Respiratory: No Symptoms, No Cough, No Dyspnea Cardiac: No Symptoms, No Chest Pain, No Edema, No Syncope Abdominal/Gastrointestinal: No Symptoms, No Abdominal Pain, No Nausea, No Vomiting, No Diarrhea Genitourinary Symptoms: No Symptoms, No Dysuria Musculoskeletal: No Symptoms, No Back Pain, No Neck Pain Skin: No Symptoms, No Rash Neurological: No Symptoms, No Dizziness, No Focal Weakness, No Sensory Changes Psychological: No Symptoms Endocrine: No Symptoms Hematologic/Lymphatic: No Symptoms Immunological/Allergic: No Symptoms All Other Systems: Reviewed and Negative - Past Medical History Pertinent Past Medical History: Yes Neurological History: No Pertinent History ENT History: No Pertinent History Cardiac History: No Pertinent History Respiratory History: No Pertinent History Endocrine Medical History: No Pertinent History Musculoskeletal History: No Pertinent History GI Medical History: No Pertinent History History: No Pertinent History Psycho-Social History: Anxiety, Attention Deficit Disorder, Depression Female Reproductive Disorders: No Pertinent History Other Medical History: Miscarried 2 children - Past Surgical History Past Surgical History: Yes Neuro Surgical History: No Pertinent History Cardiac: No Pertinent History Respiratory: No Pertinent History Gastrointestinal: No Pertinent History Genitourinary: No Pertinent History Musculoskeletal: No Pertinent History Female Surgical History: No Pertinent History Other Surgical History: wisdom teeth - Social History Smoking Status: Current every day smoker How long have you smoked: yrs Exposure to second hand smoke: No Drug Use: none Patient Lives Alone: No - Female History Hx Now: Yes Expected Date of Delivery: 06/10/22 - Nursing Vital Signs Nursing Vital Signs: Initial Vital Signs Temperature 97.9 F 12/09/21 23:50 Pulse Rate 95 H 12/09/21 23:50 Respiratory Rate 18 12/09/21 23:50 Blood Pressure 119/86 12/09/21 23:50 O2 Sat by Pulse Oximetry 99 12/09/21 23:50 Pain Scale Pain Intensity 0 - Physical Exam General Appearance: no apparent distress, alert Eye Exam: PERRL/EOMI, eyes nml inspection Ears, Nose, Throat Exam: normal ENT inspection, TMs normal, pharynx normal, moist mucous membranes Neck Exam: normal inspection, non-tender, supple, full range of motion Respiratory Exam: normal breath sounds, lungs clear, airway intact, No respiratory distress Cardiovascular Exam: regular rate/rhythm, normal heart sounds, normal peripheral pulses Gastrointestinal/Abdomen Exam: soft, normal bowel sounds, No tenderness, No mass Back Exam: normal inspection, normal range of motion, No CVA tenderness, No vertebral tenderness Extremity Exam: normal inspection, normal range of motion, pelvis stable Neurologic Exam: alert, oriented x 3, cooperative, normal mood/affect, nml cerebellar function, nml station & gait, sensation nml, No motor deficits Skin Exam: normal color, warm, dry, No rash Lymphatic Exam: No adenopathy SpO2 Interpretation: normal SpO2: 99 O2 Delivery: Room Air - Course Nursing assessment & vital signs reviewed: Yes - Radiology Ultrasound Exam OB Ultrasound: discussed w/radiologist (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 Viable fetus. No subchorionic hemorrhage.) Ordered Tests: Active Orders 24 hr Category Date Time Status IV Insertion STAT Care 12/10/21 00:12 Active OB FOLLOW UP PER [facility] [US] Stat Exams 12/10/21 00:47 Taken CBC W DIFF Stat Lab 12/10/21 00:12 Completed CMP Stat Lab 12/10/21 00:12 Completed CULTURE,URINE Stat Lab 12/10/21 00:12 Received HCG, Quantitative (Inhouse) Stat Lab 12/10/21 00:12 Completed UA W/RFX UR CULTURE Stat Lab 12/10/21 00:12 Completed Wet Prep Stat Lab 12/10/21 00:12 Completed Lab/Rad Data: Laboratory Result Diagrams 12/10/21 00:12 12/10/21 00:12 Laboratory Results 12/10/21 12/10/21 12/10/21 Range/Units 00:12 00:12 00:12 WBC (4.0-10.5) K/mm3 RBC (4.1-5.4) M/mm3 Hgb (12.0-16.0) gm/dl Hct (35-47) % MCV (78-100) fl MCH (26-32) pg MCHC (32-36) g/dl RDW (11.5-14.0) % Plt Count (150-450) K/mm3 MPV (7.5-11.0) fl Gran % (36.0-66.0) % Eos # (Auto) (0-0.5) Absolute Lymphs (auto) (1.0-4.6) Absolute Monos (auto) (0.0-1.3) Lymphocytes % (24.0-44.0) % Monocytes % (0.0-12.0) % Eosinophils % (0.00-5.0) % Basophils % (0.0-0.4) % Absolute Granulocytes (1.4-6.9) Basophils # (0-0.4) Sodium (137-145) mmol/L Potassium (3.5-5.1) mmol/L Chloride (98-107) mmol/L Carbon Dioxide (22-30) mmol/L Anion Gap (5-15) MEQ/L BUN (7-17) mg/dL Creatinine (0.52-1.04) mg/dL Estimated GFR ML/MIN Glucose (74-106) mg/dL Calcium (8.4-10.2) mg/dL Total Bilirubin (0.2-1.3) mg/dL AST (14-36) U/L ALT (0-35) U/L Alkaline Phosphatase (38-126) U/L Serum Total Protein (6.3-8.2) g/dL Albumin (3.5-5.0) g/dL Beta HCG, Quant mIU/ml Urine Color (YELLOW) Urine Appearance (CLEAR) Urine pH (5-6) Ur Specific [place] (1.005-1.025) Urine Protein (Negative) Urine Ketones (NEGATIVE) Urine Blood (0-5) Cesar/ul Urine Nitrite (NEGATIVE) Urine Bilirubin (NEGATIVE) Urine Urobilinogen (0-1) mg/dL Ur Leukocyte Esterase (NEGATIVE) Urine WBC (Auto) (0-5) /HPF Urine RBC (Auto) (0-2) /HPF U Epithel Cells (Auto) (FEW) /HPF Urine Bacteria (Auto) (NEGATIVE) /HPF Urine Mucus (Auto) (NEGATIVE) /HPF Urine Culture Reflexed (NO) Urine Glucose (NEGATIVE) mg/dL WBC (Wet Prep) Many RBC (Wet Prep) None Seen Epi Cells (Wet Prep) Many Bacteria (Wet Prep) Many Clue Cells (Wet Prep) Few Trichomonas (Wet Prep) None Seen Budding Yeast (Wet Prp) None Seen Chlamydia DNA Probe NOT DETECTED (NEGATIVE) N.gonorrhoeae DNA Probe NOT DETECTED (NEGATIVE) ABO Group O Rh Factor POSITIVE Antibody Screen NEGATIVE (NEGATIVE) 12/10/21 12/10/21 12/10/21 Range/Units 00:12 00:12 00:12 WBC 6.5 (4.0-10.5) K/mm3 RBC 4.03 L (4.1-5.4) M/mm3 Hgb 11.1 L (12.0-16.0) gm/dl Hct 34.8 L (35-47) % MCV 86.4 (78-100) fl MCH 27.5 (26-32) pg MCHC 31.9 L (32-36) g/dl RDW 16.5 H (11.5-14.0) % Plt Count 187 (150-450) K/mm3 MPV 11.5 H (7.5-11.0) fl Gran % 62.5 (36.0-66.0) % Eos # (Auto) 0.09 (0-0.5) Absolute Lymphs (auto) 1.87 (1.0-4.6) Absolute Monos (auto) 0.44 (0.0-1.3) Lymphocytes % 28.8 (24.0-44.0) % Monocytes % 6.8 (0.0-12.0) % Eosinophils % 1.4 (0.00-5.0) % Basophils % 0.5 (0.0-0.4) % Absolute Granulocytes 4.07 (1.4-6.9) Basophils # 0.03 (0-0.4) Sodium 137 (137-145) mmol/L Potassium 3.5 (3.5-5.1) mmol/L Chloride 106 (98-107) mmol/L Carbon Dioxide 21 L (22-30) mmol/L Anion Gap 14.0 (5-15) MEQ/L BUN 7 (7-17) mg/dL Creatinine 0.45 L (0.52-1.04) mg/dL Estimated GFR > 60.0 ML/MIN Glucose 85 (74-106) mg/dL Calcium 8.7 (8.4-10.2) mg/dL Total Bilirubin 0.40 (0.2-1.3) mg/dL AST 14 (14-36) U/L ALT 10 (0-35) U/L Alkaline Phosphatase 64 (38-126) U/L Serum Total Protein 6.0 L (6.3-8.2) g/dL Albumin 3.5 (3.5-5.0) g/dL Beta HCG, Quant 92867 mIU/ml Urine Color YELLOW (YELLOW) Urine Appearance CLOUDY (CLEAR) Urine pH 6.0 (5-6) Ur Specific [place] 1.017 (1.005-1.025) Urine Protein 30 (Negative) Urine Ketones NEGATIVE (NEGATIVE) Urine Blood LARGE (0-5) Cesar/ul Urine Nitrite NEGATIVE (NEGATIVE) Urine Bilirubin NEGATIVE (NEGATIVE) Urine Urobilinogen NEGATIVE (0-1) mg/dL Ur Leukocyte Esterase TRACE (NEGATIVE) Urine WBC (Auto) 3-5 (0-5) /HPF Urine RBC (Auto) 0-2 (0-2) /HPF U Epithel Cells (Auto) MODERATE (FEW) /HPF Urine Bacteria (Auto) NONE (NEGATIVE) /HPF Urine Mucus (Auto) SLIGHT (NEGATIVE) /HPF Urine Culture Reflexed YES (NO) Urine Glucose NEGATIVE (NEGATIVE) mg/dL WBC (Wet Prep) RBC (Wet Prep) Epi Cells (Wet Prep) Bacteria (Wet Prep) Clue Cells (Wet Prep) Trichomonas (Wet Prep) Budding Yeast (Wet Prp) Chlamydia DNA Probe (NEGATIVE) N.gonorrhoeae DNA Probe (NEGATIVE) ABO Group Rh Factor Antibody Screen (NEGATIVE) - Progress Progress: improved Progress Note: Patient reassessed. She is well. No active bleeding. Cervical os closed. Patient is Rh+. No indication for RhoGam. Few clue cells observed. Case discussed with Dr. Mcgowan who advised against treating with Flagyl. GC chlamydia negative. Vital stable. Patient requesting discharge. Patient agrees to follow-up with her primary care doctor/OB within 48 hours for evaluation. Portions of this note were created with voice recognition technology. There may be grammatical, spelling, punctuation or sound alike errors 12/10/21 02:[address] Jose Will see patient in: office Counseled pt/family regarding: lab results, diagnosis, need for follow-up, rad results - Departure Departure Disposition: Home Clinical Impression: Threatened Condition: Stable Critical Care Time: No Referrals: DANGELO WARREN NP [Primary Care Provider] - Follow up/PCP as directed KANDI MCGOWAN DO [ACTIVE STAFF] - Follow up/PCP as directed Instructions: Threatened Miscarriage (DC) Additional Instructions: Discharge/Care Plan RADHA CEE was seen on 12/10/21 in the Emergency Room. The patient was counseled regarding Diagnosis,Lab results, Imaging studies, need for follow up and when to return to the Emergency Room. Prescriptions given: Discharge Note I have spoken with the patient and/or caregivers. I have explained the patient's condition, diagnosis and treatment plan based on the information available to me at this time. I have answered the patient's and/or caregiver's questions and addressed any concerns. The patient and/or caregivers have as good understanding of the patient's diagnosis, condition and treatment plan as can be expected at this point. The vital signs have been stable. The patient's condition is stable and appropriate for discharge from the emergency department. The patient will pursue further outpatient evaluation with the primary care physician or other designated or consulting physician as outlined in the discharge instructions. The patient and/or caregivers are agreeable to this plan of care and follow-up instructions have been explained in detail. The patient and/or caregivers have received these instruction. The patient/and or caregivers are aware that any significant change in condition or worsening of symptoms should prompt an immediate return to this or the closest emergency department or call 911.
[2021-12-10 01:21] LABS: ALBUMIN 3.5 g/dL (3.5-5.0); ALKALINE PHOSPHATASE 64 U/L (38-126); BLOOD UREA NITROGEN 7 mg/dL (7-17); CHLORIDE 106 mmol/L (98-107); Calcium 8.7 mg/dL (8.4-10.2); Carbon Dioxide 21 mmol/L (22-30); Creatinine 1 0.45 mg/dL (0.52-1.04); EST GLOMERULAR FILTRATION RATE > 60.0 ML/MIN; Glucose 85 mg/dL (74-106); Potassium 3.5 mmol/L (3.5-5.1); SGOT/AST 14 U/L (14-36); SGPT/ALT 10 U/L (0-35); SODIUM 137 mmol/L (137-145)
[2021-12-10 01:32] LABS: ABO TYPING O; Antibody Screen NEGATIVE (NEGATIVE); RH TYPING POSITIVE
[2021-12-10 01:46] LABS: HCG, Quantitative (Inhouse) 30647 mIU/ml
[2021-12-10 02:09] LABS: CHLAMYDIA DNA NOT DETECTED (NEGATIVE); GC DNA Probe NOT DETECTED (NEGATIVE)
[2021-12-10 02:14] VITALS: BP 98/54; PULSE 64
[2021-12-10 02:21] VITALS: O2SAT 99
--- NOTE | 2021-12-10 08:49 | XRAY ---
Indication: Bleeding. 2-dimensional OB ultrasound performed. Comparison: October 28, 2021. Again single viable intrauterine with heart rate 150 BPM. Composite mean gestational age is 14 weeks 3 days. Anterior placenta with inferior tip considered low-lying adjacent to the cervical os. Left ovary unremarkable. Right ovary not visualized. No suspicious adnexal mass or free fluid. Impression: Again single viable intrauterine measuring 14 weeks 3 days. Normal progression of . Low-lying placenta that may be followed up later in the . Nothing acute. Comment: Preliminary interpretation made by [facility]. No critical discrepancy.
== END 2021-12-10 02:28 | disposition home or self-care (01) ==
LOC: ED 23:50
DX: O20.0 Threatened abortion (principal); Z3A.14 14 weeks gestation of pregnancy; Z72.0 Tobacco use
CPT/HCPCS: 36000; 36415; 76816; 80053; 81001; 84702; 85025; 86850; 86900; 86901; 87086; 87210; 87491; 87591; 99284